=== PATIENT | female | born 1980 | race American Indian/Alaskan Native ===

== ENCOUNTER 2017-05-25 11:09 | Emergency (ER) | payer SELFPAY ==
[2017-05-25 11:19] VITALS: BP 137/88
[2017-05-25 13:36] LABS: Basophils % (Auto) 0.8 % (0.0-1.8); Eosinophils % (Auto) 0.3 % (0.0-4.3); Hematocrit 35.5 % (30.3-42.9); Hemoglobin 10.9 gm/dl (10.1-14.3); Mean Corpuscular HGB Conc 31 % (30-34); Mean Corpuscular Volume 73 fl (79-97); Platelet Count 473 K/mm3 (140-440); Red Blood Count 4.86 M/mm3 (3.65-5.03); Red Cell Distribution Width 18.4 % (13.2-15.2); White Blood Count 8.9 K/mm3 (4.5-11.0)
[2017-05-25 13:39] LABS: Mean Corpuscular Hemoglobin 22 pg (28-32)
[2017-05-25 13:49] LABS: Alanine Aminotransferase 14 units/L (7-56); Albumin 4.6 g/dL (3.9-5); Albumin/Globulin Ratio 1.4 %; Alkaline Phosphatase 67 units/L (35-129); Anion Gap 16 mmol/L; BUN/Creatinine Ratio 28; Blood Urea Nitrogen 17 mg/dL (7-17); Calcium 9.8 mg/dL (8.4-10.2); Carbon Dioxide 27 mmol/L (22-30); Chloride 97.8 mmol/L (98-107); Glucose 111 mg/dL (65-100); Lipase 36 units/L (13-60); Sodium 137 mmol/L (137-145); Total Protein 7.8 g/dL (6.3-8.2)
[2017-05-25 14:49] LABS: Bacteria,Urine 1+ /HPF (Negative); Bilirubin,Urine NEG (Negative); Blood,Urine NEG (Negative); Ketones,Urine NEG (Negative); Leukocyte Esterase,Urine SM (Negative); Mucus,Urine 1+ /HPF; Nitrite,Urine NEG (Negative); Protein,Urine <15 mg/dL mg/dL (Negative); Urobilinogen,Urine < 2.0 mg/dL (<2.0)
== END 2017-05-25 19:00 | disposition left against medical advice (07) ==
LOC: ED 11:09
DX: R10.84 Generalized abdominal pain (principal); Z53.21 Procedure and treatment not carried out due to patient leaving prior to being seen by health care provider
CPT/HCPCS: 36415; 80053; 81001; 83690; 85025

== ENCOUNTER 2017-09-05 09:01 | Emergency (ER) | payer SELFPAY ==
[2017-09-05 10:02] LABS: Basophils % (Auto) 0.6 % (0.0-1.8); Eosinophils % (Auto) 0.7 % (0.0-4.3); Hematocrit 32.6 % (30.3-42.9); Lymphocytes # (Auto) 2.5 K/mm3 (1.2-5.4); Lymphocytes % (Auto) 35.4 % (13.4-35.0); Mean Corpuscular HGB Conc 31 % (30-34); Mean Corpuscular Volume 76 fl (79-97); Monocytes # (Auto) 0.5 K/mm3 (0.0-0.8); Monocytes % (Auto) 6.6 % (0.0-7.3); Platelet Count 273 K/mm3 (140-440); Red Blood Count 4.31 M/mm3 (3.65-5.03); Red Cell Distribution Width 18.7 % (13.2-15.2)
[2017-09-05 10:03] LABS: Mean Corpuscular Hemoglobin 23 pg (28-32)
[2017-09-05 10:14] LABS: Alanine Aminotransferase 13 units/L (7-56); Albumin 4.1 g/dL (3.9-5); BUN/Creatinine Ratio 15; Blood Urea Nitrogen 6 mg/dL (7-17); Calcium 8.8 mg/dL (8.4-10.2); Hemolysis Index 0
[2017-09-05 19:09] LABS: Bilirubin,Urine NEG (Negative); Blood,Urine NEG (Negative); Color,Urine Yellow (Yellow); Mucus,Urine 3+ /HPF; Nitrite,Urine NEG (Negative)
[2017-09-05] MEDS ORDERED: ZOFRAN IV ONE (19:34)
[2017-09-05] MEDS ORDERED: MORPHINE IV ONE ×2 (19:34→22:14)
[2017-09-05] MEDS ORDERED: NACL 0.9% 1000 ML 1,000 ML IV ONE (19:34)
--- NOTE | 2017-09-05 19:35 | Emergency Department Report ---
ED Abdominal Pain HPI - General Chief Complaint: Abdominal Pain Stated Complaint: ABDOMINAL PAIN/NAUSEA Time Seen by Provider: 09/05/17 18:49 Source: patient Mode of arrival: Ambulatory Limitations: No Limitations - History of Present Illness Initial Comments: Abd pain for 3 days, with nausea and vomiting, no diarrhea, feels like her gal bladder pain, has had similar symptoms in the past, denies being a smoker, denies ETOH use, no drug use, allergic to tramadol, states pain is more in the right and left lower quadrants. No fever. Denies being . MD Complaint: abdominal pain -: days(s) (3) Location: diffuse, LLQ, RLQ Radiation: none Migration to: no migration Severity: moderate Severity scale (0 -10): 8 Quality: cramping, fullness Consistency: constant Improves With: nothing Worsens With: nothing Associated Symptoms: nausea, vomiting. denies: diarrhea, fever, chills, constipation, dysuria, hematemesis, hematochezia, melena, hematuria, anorexia, syncope - Related Data Home Medications Medication Instructions Recorded Confirmed Last Taken Lisinopril/Hydrochlorothiazide 20 mg PO QDAY 09/05/17 09/05/17 09/04/17 [Zestoretic 10-12.5 mg] Previous Rx's Medication Instructions Recorded Last Taken Type HYDROcodone/ACETAMINOPHEN [[place] 1 each PO BID PRN #10 tablet 09/05/17 Unknown Rx 5-325 Tablet] Ondansetron [Zofran Odt] 4 mg PO TID PRN #20 tab.rapdis 09/05/17 Unknown Rx Allergies Allergy/AdvReac Type Severity Reaction Status Date / Time tramadol Allergy Angioedema Verified 05/25/17 11:17 ED Review of Systems ROS: Stated complaint: ABDOMINAL PAIN/NAUSEA Other details as noted in HPI Comment: All other systems reviewed and negative Constitutional: see HPI. denies: chills, fever Eyes: denies: eye pain, eye discharge, vision change ENT: denies: ear pain, throat pain Respiratory: denies: cough, shortness of breath, wheezing Cardiovascular: denies: chest pain, palpitations Endocrine: no symptoms reported Gastrointestinal: as per HPI, abdominal pain, nausea, vomiting. denies: diarrhea Genitourinary: denies: urgency, dysuria, discharge Musculoskeletal: denies: back pain, joint swelling, arthralgia Skin: denies: rash, lesions Neurological: weakness. denies: headache, paresthesias Psychiatric: denies: anxiety, depression Hematological/Lymphatic: denies: easy bleeding, easy bruising ED Past Medical Hx - Past Medical History Hx Hypertension: Yes (During ) - Social History Smoking Status: Never Smoker Substance Use Type: None - Medications Home Medications: Home Medications Medication Instructions Recorded Confirmed Last Taken Type HYDROcodone/ACETAMINOPHEN [[place] 1 each PO BID PRN #10 tablet 09/05/17 Unknown Rx 5-325 Tablet] Lisinopril/Hydrochlorothiazide 20 mg PO QDAY 09/05/17 09/05/17 09/04/17 History [Zestoretic 10-12.5 mg] Ondansetron [Zofran Odt] 4 mg PO TID PRN #20 tab.rapdis 09/05/17 Unknown Rx ED Physical Exam - General Limitations: No Limitations General appearance: alert, in no apparent distress - Head Head exam: Present: atraumatic, normocephalic - Eye Eye exam: Present: normal appearance - ENT ENT exam: Present: mucous membranes moist - Neck Neck exam: Present: normal inspection - Respiratory Respiratory exam: Present: normal lung sounds bilaterally. Absent: respiratory distress - Cardiovascular Cardiovascular Exam: Present: regular rate, normal rhythm. Absent: systolic murmur, diastolic murmur, rubs, gallop - GI/Abdominal GI/Abdominal exam: Present: soft, tenderness (diffuse but more so in the right lower quadrant), normal bowel sounds - Rectal Rectal exam: Present: deferred - Extremities Exam Extremities exam: Present: normal inspection - Back Exam Back exam: Present: normal inspection - Neurological Exam Neurological exam: Present: alert, oriented X3, CN II-XII intact - Psychiatric Psychiatric exam: Present: normal affect, normal mood - Skin Skin exam: Present: warm, dry, intact, normal color. Absent: rash ED Course Vital Signs 09/05/17 09/05/17 09/05/17 09:36 19:28 19:29 Temperature 97.8 F 98.0 F Pulse Rate 70 Respiratory 16 18 Rate Blood Pressure 173/73 O2 Sat by Pulse 97 100 Oximetry - Reevaluation(s) Reevaluation #1: 09/05/17 19:34 Will go ahead and order a CT scan of her abdomen and pelvis, likely to be related to her gal bladder but she still has her appendix. She would also like something for pain. We will go ahead and give morphine and zofran. 09/05/17 22:08 CT scan is normal. She is asking for more pain medication. She also would like an Rx for pain medicine. I told her to follow up with her PMD. Discharge home. 09/05/17 22:15 ED Medical Decision Making - Lab Data Result diagrams: 09/05/17 09:41 09/05/17 09:41 Critical care attestation.: If time is entered above; I have spent that time in minutes in the direct care of this critically ill patient, excluding procedure time. ED Disposition Clinical Impression: Nausea & vomiting Qualifiers: Vomiting type: unspecified Vomiting Intractability: non-intractable Qualified Code(s): R11.2 - Nausea with vomiting, unspecified Disposition: DC-01 TO HOME OR SELFCARE Is pt being admited?: No Does the pt Need Aspirin: No Condition: Stable Instructions: Abdominal Pain (ED) Additional Instructions: Rest, fluids, pedialyte, watach for worsening, new symptoms, return as needed. Prescriptions: HYDROcodone/ACETAMINOPHEN [[place] 5-325 Tablet] 1 each PO BID PRN #10 tablet PRN Reason: Pain Ondansetron [Zofran Odt] 4 mg PO TID PRN #20 tab.rapdis PRN Reason: Nausea And Vomiting
[2017-09-05 19:59] LABS: HCG Qualitative,Urine Negative (Negative)
--- NOTE | 2017-09-05 20:55 | Cat Scan Report ---
FINAL REPORT EXAM: CT ABDOMEN PELVIS W CON HISTORY: Abdominal Pain TECHNIQUE: CT abdomen and pelvis with oral and intravenous contrast PRIORS: None. FINDINGS: No acute abnormality identified in the lung bases. No focal abnormality identified within the liver parenchyma. The spleen demonstrates normal size and attenuation. No pancreatic abnormalities seen. The kidneys demonstrate symmetric contrast enhancement. Adrenal glands are unremarkable. No evidence of hydronephrosis. Abdominal aorta is normal in caliber. No pathologically enlarged lymph nodes are identified. No signs of free fluid or free air No evidence of small bowel dilatation. The appendix is identified and is normal in size no adjacent inflammatory change seen. Colon is nondistended. Urinary bladder is unremarkable. IMPRESSION: Negative. No acute abnormalities seen
[2017-09-05] MEDS ORDERED: MORPHINE ONE (22:22)
[2017-09-05 22:34] VITALS: BP 142/90
== END 2017-09-05 22:34 | disposition home or self-care (01) ==
LOC: ED 09:01
DX: R10.31 Right lower quadrant pain (principal); R11.2 Nausea with vomiting, unspecified; Z88.6 Allergy status to analgesic agent
CPT/HCPCS: 36415; 74177; 80053; 81001; 81025; 82150; 83690; 85025; 96361; 96374; 96375; 96376; 99284; J2270; J2405; J7030; Q9967

== ENCOUNTER 2017-10-29 23:41 | Emergency (ER) | payer SELFPAY ==
[2017-10-30 00:38] LABS: Basophils # (Auto) 0.1 K/mm3 (0.0-0.1); Basophils % (Auto) 0.5 % (0.0-1.8); Eosinophils % (Auto) 0.2 % (0.0-4.3); Hemoglobin 9.9 gm/dl (10.1-14.3); Lymphocytes # (Auto) 3.1 K/mm3 (1.2-5.4); Lymphocytes % (Auto) 24.9 % (13.4-35.0); Mean Corpuscular HGB Conc 31 % (30-34); Mean Corpuscular Volume 74 fl (79-97); Monocytes # (Auto) 0.8 K/mm3 (0.0-0.8); Monocytes % (Auto) 6.2 % (0.0-7.3); Platelet Count 470 K/mm3 (140-440); Red Blood Count 4.34 M/mm3 (3.65-5.03); Red Cell Distribution Width 17.4 % (13.2-15.2)
[2017-10-30 00:41] LABS: Mean Corpuscular Hemoglobin 23 pg (28-32)
[2017-10-30 01:00] LABS: Alanine Aminotransferase 14 units/L (7-56); Albumin 4.3 g/dL (3.9-5); BUN/Creatinine Ratio 26; Blood Urea Nitrogen 21 mg/dL (7-17); Calcium 9.4 mg/dL (8.4-10.2); Hemolysis Index 14
[2017-10-30 09:30] VITALS: BP 116/62
[2017-10-30] MEDS ORDERED: NORCO 5/325 PO ONE (09:51)
--- NOTE | 2017-10-30 09:55 | Emergency Department Report ---
ED General Adult HPI - General Chief complaint: Headache Stated complaint: DIZZY,NAUSEA,RIGHT LEG PAIN Time Seen by Provider: 10/30/17 09:39 Source: patient, family Mode of arrival: Ambulatory Limitations: No Limitations - History of Present Illness Initial comments: Ms. Flores is a 37 yo female with hx of HTN on Lisinopril/HCTZ. She presents with 2 days of dizziness and lightheadnedness. Worse with position change and walking. No persistent vertigo. NO vomiting. No headache. hx of anemia only with . No need for potassium supplementation. Full physical with PCP 6 months ago. No change in regimen or diet. HTN has been controlled. has had cramps in right hand. Had to physically open her right hand by massaging with her left right leg bruise with swelling, moderate pain. LMP last week, regular menses Severity scale (0 -10): 8 - Related Data Home Medications Medication Instructions Recorded Confirmed Last Taken Lisinopril/Hydrochlorothiazide 20 mg PO QDAY 09/05/17 09/05/17 09/04/17 [Zestoretic 10-12.5 mg] Previous Rx's Medication Instructions Recorded Last Taken Type HYDROcodone/ACETAMINOPHEN [[place] 1 each PO BID PRN #10 tablet 09/05/17 Unknown Rx 5-325 Tablet] Ondansetron [Zofran Odt] 4 mg PO TID PRN #20 tab.rapdis 09/05/17 Unknown Rx Ferrous Sulfate [Iron] 325 mg PO TID #90 tablet 10/30/17 Unknown Rx HYDROcodone/APAP 5-325 [[place] 1 each PO Q6HR PRN #10 tablet 10/30/17 Unknown Rx 5/325] Allergies Allergy/AdvReac Type Severity Reaction Status Date / Time tramadol Allergy Angioedema Verified 05/25/17 11:17 ED Review of Systems ROS: Stated complaint: DIZZY,NAUSEA,RIGHT LEG PAIN Other details as noted in HPI Comment: All other systems reviewed and negative Constitutional: denies: chills Respiratory: denies: cough Cardiovascular: denies: chest pain ED Past Medical Hx - Past Medical History Hx Hypertension: Yes (During ) - Surgical History Past Surgical History?: No - Social History Smoking Status: Never Smoker Substance Use Type: None - Medications Home Medications: Home Medications Medication Instructions Recorded Confirmed Last Taken Type HYDROcodone/ACETAMINOPHEN [[place] 1 each PO BID PRN #10 tablet 09/05/17 Unknown Rx 5-325 Tablet] Lisinopril/Hydrochlorothiazide 20 mg PO QDAY 09/05/17 09/05/17 09/04/17 History [Zestoretic 10-12.5 mg] Ondansetron [Zofran Odt] 4 mg PO TID PRN #20 tab.rapdis 09/05/17 Unknown Rx Ferrous Sulfate [Iron] 325 mg PO TID #90 tablet 10/30/17 Unknown Rx HYDROcodone/APAP 5-325 [[place] 1 each PO Q6HR PRN #10 tablet 10/30/17 Unknown Rx 5/325] ED Physical Exam - General Limitations: No Limitations General appearance: alert, in no apparent distress - Head Head exam: Present: atraumatic, normocephalic - Eye Eye exam: Present: normal appearance - ENT ENT exam: Present: normal orophraynx, mucous membranes moist, TM's normal bilaterally (no hyperemia and no effusion) - Neck Neck exam: Present: normal inspection - Respiratory Respiratory exam: Present: normal lung sounds bilaterally. Absent: respiratory distress, wheezes, rales, rhonchi - Cardiovascular Cardiovascular Exam: Present: regular rate, normal rhythm. Absent: systolic murmur, diastolic murmur, rubs, gallop - GI/Abdominal GI/Abdominal exam: Present: soft, normal bowel sounds. Absent: distended, tenderness, guarding, rebound - Extremities Exam Extremities exam: Present: other (right lower leg 4 cm hematoma with ecchymosis) - Back Exam Back exam: Present: normal inspection - Neurological Exam Neurological exam: Present: alert, oriented X3 - Psychiatric Psychiatric exam: Present: normal affect, normal mood - Skin Skin exam: Present: warm, dry, intact, normal color. Absent: rash ED Course Vital Signs 10/30/17 10/30/17 10/30/17 00:12 02:00 09:20 Temperature 98.2 F 98.3 F Pulse Rate 81 72 76 Respiratory 16 17 11 L Rate Blood Pressure 149/101 103/53 Blood Pressure 103/53 116/62 [Left] O2 Sat by Pulse 100 100 100 Oximetry ED Medical Decision Making - Lab Data Result diagrams: 10/30/17 00:30 10/30/17 00:30 - Medical Decision Making Mrs. Freedom Flores is a well-appearing 37-year-old female presents today with lightheadedness and right leg pain. No indication of CVA or PE. Patient states that she does not drink enough fluids. I suggested to increase water intake. Also will treat for anemia or iron tablets. No indication of DVT. There is right bruising and the leg without signs of fracture on radiographs. Prescriptions: Ferrous sulfate, [place] strongly recommended follow-up with PCP Critical care attestation.: If time is entered above; I have spent that time in minutes in the direct care of this critically ill patient, excluding procedure time. ED Disposition Clinical Impression: Lightheadedness, Anemia, Leg hematoma Disposition: DC-01 TO HOME OR SELFCARE Is pt being admited?: No Does the pt Need Aspirin: No Condition: Stable Instructions: Iron Deficiency Anemia (ED), Dehydration (ED), Contusion in Adults (ED) Additional Instructions: Please see her primary doctor this week. Please increase water intake Prescriptions: Ferrous Sulfate [Iron] 325 mg PO TID #90 tablet HYDROcodone/APAP 5-325 [[place] 5/325] 1 each PO Q6HR PRN #10 tablet PRN Reason: Pain
--- NOTE | 2017-10-30 10:44 | XRay Report ---
RIGHT TIBIA/FIBULA: History: Right leg pain AP and lateral views of the right tibia/fibula demonstrate normal mineralization and contours for this patient's age. No destructive changes are noted and the adjacent soft tissues are normal. IMPRESSION: Unremarkable right tibia/fibula.
[2017-10-30] MEDS ORDERED: ZOFRAN ODT PO ONE (11:00)
== END 2017-10-30 11:29 | disposition home or self-care (01) ==
LOC: ED 23:41
DX: D64.9 Anemia, unspecified (principal); S80.11XA Contusion of right lower leg, initial encounter; X58.XXXA Exposure to other specified factors, initial encounter; Y93.89 Activity, other specified; Y99.8 Other external cause status; Y92.89 Other specified places as the place of occurrence of the external cause
CPT/HCPCS: 36415; 80053; 84703; 85025; Q0162

== ENCOUNTER 2018-01-15 15:00 | Emergency (ER) | payer SELFPAY ==
--- NOTE | 2018-01-15 19:55 | Emergency Department Report ---
ED Lower Extremity HPI - General Chief Complaint: Extremity Injury, Lower Stated Complaint: RIGHT LEG SWOLLEN/PAINFUL Time Seen by Provider: 01/15/18 19:54 Source: patient Mode of arrival: Ambulatory Limitations: No Limitations - History of Present Illness Initial Comments: This is a 37-year-old female nontoxic, well nourished in appearance, no acute signs of distress presents to the ED with c/o of left tib-fib pain 1 week. Patient stated that she hit her leg against hospital bed at [facility]. Patient stated that she was seen there and received x-rays within normal limits. Stated that she been taking [id number] medication with no relief. Patient denies any other trauma. Patient denies any numbness, tingling , fever, chills, nausea, vomiting, chest pain, shortness of breath, headache, stiff neck. Patient denies any joint swelling or joint redness. Patient denies decreased range of motion. Patient stated has decreased gait due to pain. Patient states allergies to tramadol. Denies significant past medical history besides hypertension. MD Complaint: leg injury -: week(s) (1) Injury: Leg: Left Type of Injury: blunt Place: other (hospital) Severity: mild Severity scale (0 -10): 8 Improves With: immobilization Worsens With: movement, palpation Associated Symptoms: ambulatory. denies: snap/pop sensation, swelling, numbness , tingling, unable to bear weight, able to partially bear weight - Related Data Home Medications Medication Instructions Recorded Confirmed Last Taken Lisinopril/Hydrochlorothiazide 20 mg PO QDAY 09/05/17 09/05/17 09/04/17 [Zestoretic 10-12.5 mg] Previous Rx's Medication Instructions Recorded Last Taken Type HYDROcodone/ACETAMINOPHEN [[place] 1 each PO BID PRN #10 tablet 09/05/17 Unknown Rx 5-325 Tablet] Ondansetron [Zofran Odt] 4 mg PO TID PRN #20 tab.rapdis 09/05/17 Unknown Rx Ferrous Sulfate [Iron] 325 mg PO TID #90 tablet 10/30/17 Unknown Rx HYDROcodone/APAP 5-325 [[place] 1 each PO Q6HR PRN #10 tablet 10/30/17 Unknown Rx 5/325] Promethazine [Phenergan TAB] 25 mg PO Q6HR PRN #10 tab 10/30/17 Unknown Rx Ibuprofen [Motrin] 600 mg PO Q8H PRN #30 tablet 01/15/18 Unknown Rx Allergies Allergy/AdvReac Type Severity Reaction Status Date / Time tramadol Allergy Angioedema Verified 05/25/17 11:17 ED Review of Systems ROS: Stated complaint: RIGHT LEG SWOLLEN/PAINFUL Other details as noted in HPI Constitutional: denies: chills, fever Eyes: denies: eye pain, eye discharge, vision change ENT: denies: ear pain, throat pain Respiratory: denies: cough, shortness of breath, wheezing Cardiovascular: denies: chest pain, palpitations Endocrine: no symptoms reported Gastrointestinal: denies: abdominal pain, nausea, diarrhea Genitourinary: denies: urgency, dysuria, discharge Musculoskeletal: arthralgia. denies: back pain, joint swelling Skin: denies: rash, lesions Neurological: denies: headache, weakness, paresthesias Psychiatric: denies: anxiety, depression Hematological/Lymphatic: denies: easy bleeding, easy bruising ED Past Medical Hx - Past Medical History Hx Hypertension: Yes - Surgical History Past Surgical History?: No - Social History Smoking Status: Never Smoker Substance Use Type: None - Medications Home Medications: Home Medications Medication Instructions Recorded Confirmed Last Taken Type HYDROcodone/ACETAMINOPHEN [[place] 1 each PO BID PRN #10 tablet 09/05/17 Unknown Rx 5-325 Tablet] Lisinopril/Hydrochlorothiazide 20 mg PO QDAY 09/05/17 09/05/17 09/04/17 History [Zestoretic 10-12.5 mg] Ondansetron [Zofran Odt] 4 mg PO TID PRN #20 tab.rapdis 09/05/17 Unknown Rx Ferrous Sulfate [Iron] 325 mg PO TID #90 tablet 10/30/17 Unknown Rx HYDROcodone/APAP 5-325 [[place] 1 each PO Q6HR PRN #10 tablet 10/30/17 Unknown Rx 5/325] Promethazine [Phenergan TAB] 25 mg PO Q6HR PRN #10 tab 10/30/17 Unknown Rx Ibuprofen [Motrin] 600 mg PO Q8H PRN #30 tablet 01/15/18 Unknown Rx ED Physical Exam - General Limitations: No Limitations General appearance: alert, in no apparent distress - Head Head exam: Present: atraumatic, normocephalic - Eye Eye exam: Present: normal appearance Pupils: Present: normal accommodation - ENT ENT exam: Present: normal exam, mucous membranes moist - Neck Neck exam: Present: normal inspection, full ROM. Absent: tenderness, meningismus, lymphadenopathy - Respiratory Respiratory exam: Present: normal lung sounds bilaterally. Absent: respiratory distress, wheezes, rales, rhonchi, stridor, chest wall tenderness, accessory muscle use, decreased breath sounds, prolonged expiratory - Cardiovascular Cardiovascular Exam: Present: regular rate, normal rhythm, normal heart sounds. Absent: bradycardia, tachycardia, irregular rhythm, systolic murmur, diastolic murmur, rubs, gallop - GI/Abdominal GI/Abdominal exam: Present: soft, normal bowel sounds. Absent: distended, tenderness, guarding, rebound, rigid, diminished bowel sounds - Rectal Rectal exam: Present: deferred - Extremities Exam Extremities exam: Present: normal inspection, full ROM, tenderness, normal capillary refill. Absent: joint swelling - Expanded Lower Extremity Exam Left Hip exam: Present: normal inspection, full ROM. Absent: tenderness, swelling Upper Leg exam: Present: normal inspection, full ROM. Absent: tenderness, swelling Knee exam: Present: normal inspection, full ROM, full knee extension. Absent: tenderness, swelling, abrasion, laceration, ecchymosis, deformity, crepidus, dislocation, erythema, effusion, pain w/ pronation/supination, posterior draw sign, pain/laxity with valgus, pain/laxity with varus Lower Leg exam: Present: normal inspection, full ROM, tenderness. Absent: swelling, abrasion, laceration, ecchymosis, deformity, crepidus, dislocation, erythema, palpable cord, Abbie's sign Ankle exam: Present: normal inspection, full ROM. Absent: tenderness, swelling Foot/Toe exam: Present: normal inspection, full ROM. Absent: tenderness, swelling Neuro vascular tendon exam: Present: no vascular compromise. Absent: pulse deficit, abnormal cap refill, motor deficit, sensory deficit, tendon deficit, extremity cold to touch, pallor, abnormal 2-point discrimination, decreased fine /light touch, foot drop, peroneal nerve deficit, significant pain with passive ROM of distal joint Gait: Positive: observed and normal - Back Exam Back exam: Present: normal inspection, full ROM - Neurological Exam Neurological exam: Present: alert, oriented X3, normal gait - Psychiatric Psychiatric exam: Present: normal affect, normal mood - Skin Skin exam: Present: warm, dry, intact, normal color. Absent: rash ED Course Vital Signs 01/15/18 15:28 Temperature 98.3 F Pulse Rate 68 Respiratory 18 Rate Blood Pressure 156/85 O2 Sat by Pulse 100 Oximetry - Reevaluation(s) Reevaluation #1: 01/15/18 21:02 Patient is speaking in full sentences with no signs of distress noted. ED Lower Extremity MDM - Medical Decision Making This is a 37-year-old female that presents with left tib-fib strain. Patient is stable and was examined by me. I referred patient to an orthopedic doctor for further evaluation for possible MRI. X-ray has been obtained and dictated by the radiologist. Patient is notified of the x-ray report with noted by the patient. Patient does have normal gait with no tenderness and no joint swelling. No ecchymosis. no joint redness or swelling. Not warm to touch. No signs of cellulites present. Patient was instructed to RICE therapy. Patient received Tylenol with Codeine for pain and was instructed not to operate any machinery after discharge due to possible drowsiness and patient's is currently at the bedside and stated he will drive her home.. Patient is discharged with Motrin. At time of discharge, the patient does not seem toxic or ill in appearance. No acute signs of distress noted. Patient agrees to discharge treatment plan of care. No further questions noted by the patient. Critical care attestation.: If time is entered above; I have spent that time in minutes in the direct care of this critically ill patient, excluding procedure time. ED Disposition Clinical Impression: Strain of left knee and leg Qualifiers: Encounter type: initial encounter Qualified Code(s): S86.912A - Strain of unspecified muscle(s) and tendon(s) at lower leg level, left leg, initial encounter Disposition: DC- TO HOME OR SELFCARE Is pt being admited?: No Does the pt Need Aspirin: No Condition: Stable Instructions: Knee Pain (ED), RICE Therapy (ED), Ibuprofen (By mouth) Additional Instructions: Follow-up with a orthopedic doctor in 3-5 days or if symptoms worsen and continue return to emergency room as soon as possible. Prescriptions: Ibuprofen [Motrin] 600 mg PO Q8H PRN #30 tablet PRN Reason: Pain Referrals: PRIMARY CAREMD [Primary Care Provider] - 3-5 Days HANNA PIERSON MD [Staff Physician] - 3-5 Days [facility] [Outside] - 3-5 Days [facility] [Outside] - 3-5 Days Forms: Work/School Release Form(ED)
[2018-01-15] MEDS ORDERED: TYLENOL #3 PO ONE (19:58)
--- NOTE | 2018-01-15 21:00 | XRay Report ---
FINAL REPORT PROCEDURE: XR TIBIA FIBULA 2V RT TECHNIQUE: RIGHT tibia and fibula radiographs, AP and lateral views. CPT 81836 HISTORY: knee/tib-fib pain pain COMPARISON: No prior studies are available for comparison. FINDINGS: Fracture (s) and/or Dislocation(s): None . Joint space(s): Normal . Soft tissues: Normal . Bone mineralization: Normal . Foreign bodies: None . IMPRESSION: Normal Examination.
--- NOTE | 2018-01-15 21:07 | XRay Report ---
FINAL REPORT PROCEDURE: XR KNEE 3V RT TECHNIQUE: RIGHT knee radiographs, AP, lateral and sunrise views. CPT 62531 HISTORY: knee/tib-fib pain pain COMPARISON: No prior studies are available for comparison. FINDINGS: Fracture (s) and/or Dislocation(s): None . Alignment: Normal . Joint space(s): Normal . Soft tissues: Normal . Bone mineralization: Normal . Foreign bodies: None . IMPRESSION: Normal Examination.
[2018-01-15 21:31] VITALS: BP 147/85
== END 2018-01-15 22:13 | disposition home or self-care (01) ==
LOC: ED 15:00
DX: S76.912A Strain of unspecified muscles, fascia and tendons at thigh level, left thigh, initial encounter (principal); I10 Essential (primary) hypertension; Z88.6 Allergy status to analgesic agent; W22.03XA Walked into furniture, initial encounter; Y93.89 Activity, other specified; Y92.89 Other specified places as the place of occurrence of the external cause; Y99.8 Other external cause status
CPT/HCPCS: 99283

== ENCOUNTER 2018-12-21 17:18 | Emergency (ER) | payer SELFPAY ==
--- NOTE | 2018-12-21 17:50 | Emergency Department Report ---
Blank Doc - Documentation Documentation: pt states she has a diffuse, itchy rash and swelling to the face that began two hours ago no new medications, new soaps, detergents used a glue on the hair and began experiencing the symptoms after took benadryl 1 hour ago no PMHx allergy: tramadol -->tongue swelling non smoker non drinker no drug use
[2018-12-21 17:54] VITALS: BP 136/93
== END 2018-12-21 20:15 | disposition left against medical advice (07) ==
LOC: ED 17:18
DX: R21 Rash and other nonspecific skin eruption (principal); Z53.21 Procedure and treatment not carried out due to patient leaving prior to being seen by health care provider

== ENCOUNTER 2019-01-29 20:49 | Emergency (ER) | payer OTHER ==
--- NOTE | 2019-01-29 20:59 | Emergency Department Report ---
Blank Doc - Documentation Documentation: This is a 38-year-old female that presents with acute headache. Denies any hx of headaches. This initial assessment/diagnostic orders/clinical plan/treatment(s) is/are subject to change based on patient's health status, clinical progression and re- assessment by fellow clinical providers in the ED. Further treatment and workup at subsequent clinical providers discretion. Patient/guardians urged not to elope from the ED as their condition may be serious if not clinically assessed and managed. Initial orders include: 1- Patient sent to [facility] for further evaluation and treatment 2- cT head
--- NOTE | 2019-01-29 21:57 | Cat Scan Report ---
CT BRAIN: 01/29/2019 INDICATION / CLINICAL INFORMATION: headache. COMPARISON: 02/03/2015 FINDINGS: BRAIN/INTRACRANIAL STRUCTURES: Unenhanced CT images of the brain demonstrate no evidence of acute int racranial abnormality. Ventricles and sulci are normal in size and shape. There is no evidence of hemorrhage or mass. There are no abnormal extra-axial fluid collections. EXTRACRANIAL STRUCTURES: Unremarkable. IMPRESSION: Negative unenhanced CT of the brain. No change when compared to 02/03/[address] scans at this location are performed using dose reduction to ALARA by means of automated expos ure control. Signer Name: eDwey Patel MD Signed: 01/29/2019 8:53 PM Workstation Name: [id number]
[2019-01-29] MEDS ORDERED: FIORICET PO ONE (22:51)
[2019-01-29] MEDS ORDERED: CATAPRES PO ONE (22:52)
[2019-01-29] MEDS ORDERED: ZOFRAN ODT PO ONE (22:58)
--- NOTE | 2019-01-30 00:33 | Emergency Department Report ---
ED Headache HPI - General Chief Complaint: Headache Stated Complaint: N DIZZINESS LIGHTHEADED HEADACHE Time Seen by Provider: 01/29/19 20:58 Source: patient Exam Limitations: no limitations - History of Present Illness Initial Comments: 38-year-old -[place] female presents to ED with 3 day history of elevated blood pressure, headache, but no fever or neck pain. The patient hasn't taken any medications for his symptoms, although she states she is compliant with her lisinopril. No chest pain or shortness of breath. Timing/Duration: constant Quality: severe Head Injury Location: frontal Recent Head Trauma: no recent headache/trauma Modifying Factors: improves with: exposure to light Associated Symptoms: denies: fatigue, fever/chills, nausea/vomiting, stiff neck Allergies/Adverse Reactions: Allergies tramadol Allergy (Verified 12/21/18 17:20) Angioedema Home Medications: Ambulatory Orders HYDROcodone/ACETAMINOPHEN [Fifty Six 5-325 Tablet] 1 each PO BID PRN #10 tablet 09/05/17 Lisinopril/Hydrochlorothiazide [Zestoretic 10-12.5 mg] 20 mg PO QDAY 09/05/17 Ondansetron [Zofran Odt] 4 mg PO TID PRN #20 tab.rapdis 09/05/17 Ferrous Sulfate [Iron 325 MG] 325 mg PO TID #90 tablet 10/30/17 HYDROcodone/APAP 5-325 [Fifty Six 5/325] 1 each PO Q6HR PRN #10 tablet 10/30/17 Promethazine [Phenergan] 25 mg PO Q6HR PRN #10 tab 10/30/17 Ibuprofen [Motrin] 600 mg PO Q8H PRN #30 tablet 01/15/18 Butalb/Acetaminophen/Caffeine [Fioricet 50-300-40 mg CAP] 1 cap PO Q8HR PRN #10 cap 01/30/19 ED Review of Systems ROS: Stated complaint: N DIZZINESS LIGHTHEADED HEADACHE Other details as noted in HPI Comment: All other systems reviewed and negative ENT: denies: ear pain, throat pain Endocrine: denies: flushing, intolerance to cold, intolerance to heat Gastrointestinal: denies: nausea, vomiting Genitourinary: denies: urgency Skin: denies: rash Neurological: headache ED Past Medical Hx - Past Medical History Previous Medical History?: Yes Hx Hypertension: Yes - Surgical History Past Surgical History?: No - Social History Smoking Status: Never Smoker Substance Use Type: None - Medications Home Medications: Home Medications Medication Instructions Recorded Confirmed Last Taken Type HYDROcodone/ACETAMINOPHEN [Fifty Six 1 each PO BID PRN #10 tablet 09/05/17 Unknown Rx 5-325 Tablet] Lisinopril/Hydrochlorothiazide 20 mg PO QDAY 09/05/17 09/05/17 09/04/17 History [Zestoretic 10-12.5 mg] Ondansetron [Zofran Odt] 4 mg PO TID PRN #20 tab.rapdis 09/05/17 Unknown Rx Ferrous Sulfate [Iron 325 MG] 325 mg PO TID #90 tablet 10/30/17 Unknown Rx HYDROcodone/APAP 5-325 [Fifty Six 1 each PO Q6HR PRN #10 tablet 10/30/17 Unknown Rx 5/325] Promethazine [Phenergan] 25 mg PO Q6HR PRN #10 tab 10/30/17 Unknown Rx Ibuprofen [Motrin] 600 mg PO Q8H PRN #30 tablet 01/15/18 Unknown Rx Butalb/Acetaminophen/Caffeine 1 cap PO Q8HR PRN #10 cap 01/30/19 Unknown Rx [Fioricet 50-300-40 mg CAP] ED Physical Exam - General Limitations: No Limitations General appearance: alert, in no apparent distress - Head Head exam: Present: atraumatic, normocephalic - Eye Eye exam: Present: normal appearance, PERRL, EOMI - ENT ENT exam: Present: normal exam, normal orophraynx - Neck Neck exam: Present: normal inspection - Respiratory Respiratory exam: Present: normal lung sounds bilaterally - Cardiovascular Cardiovascular Exam: Present: regular rate, normal rhythm - GI/Abdominal GI/Abdominal exam: Present: soft, normal bowel sounds - Neurological Exam Neurological exam: Present: alert, oriented X3 - Psychiatric Psychiatric exam: Present: normal affect, normal mood - Skin Skin exam: Present: warm, intact ED Course Vital Signs 01/29/19 01/29/19 01/29/19 20:58 23:05 23:06 Temperature 98.3 F 98.8 F Pulse Rate 59 L 73 73 Respiratory 18 18 Rate Blood Pressure 181/99 160/91 Blood Pressure 160/91 [Right] O2 Sat by Pulse 99 100 Oximetry 01/29/19 23:07 Temperature Pulse Rate Respiratory 18 Rate Blood Pressure Blood Pressure [Right] O2 Sat by Pulse 100 Oximetry ED Medical Decision Making - Medical Decision Making CT head in the ED showed no acute intracranial abnormalities. The patient received Fioricet 2, Zofran ODT for headache, symptoms improved, will DC home. Critical care attestation.: If time is entered above; I have spent that time in minutes in the direct care of this critically ill patient, excluding procedure time. ED Disposition Clinical Impression: Headache Qualifiers: Headache type: tension-type Headache chronicity pattern: acute headache Intractability: not intractable Qualified Code(s): G44.209 - Tension-type headache, unspecified, not intractable Disposition: DC-01 TO HOME OR SELFCARE Is pt being admited?: No Does the pt Need Aspirin: No Condition: Stable Instructions: Acute Headache (ED), Hypertension (ED) Prescriptions: Butalb/Acetaminophen/Caffeine [Fioricet 50-300-40 mg CAP] 1 cap PO Q8HR PRN #10 cap PRN Reason: Headache Referrals: LY LEE MD [Primary Care Provider] - 3-5 Days
[2019-01-30] MEDS ORDERED: FIORICET PO ONE (00:38)
[2019-01-30] MEDS ORDERED: MORPHINE IM ONE (01:07)
[2019-01-30] MEDS ORDERED: BENADRYL PO ONE (01:08)
[2019-01-30] MEDS ORDERED: CATAPRES PO ONE (01:09)
[2019-01-30 01:48] VITALS: BP 171/98
== END 2019-01-30 01:48 | disposition home or self-care (01) ==
LOC: ED 20:49
DX: R51 Headache (principal); I10 Essential (primary) hypertension; Z88.5 Allergy status to narcotic agent; Z79.1 Long term (current) use of non-steroidal anti-inflammatories (NSAID); Z79.899 Other long term (current) drug therapy
CPT/HCPCS: 70450; 96372; 99283; J2270; Q0162